=== PATIENT | female | born 1990 | race Caucasian/White ===

== ENCOUNTER 2023-04-11 16:24 | Emergency (ER) | payer OTHER ==
[~2023-04-11] VITALS: Wt 66.5 kg
[~2023-04-11 16:24] MED LIST: KETOROLAC10 MG PO
[2023-04-11 17:09] VITALS: BP 120/78
== END 2023-04-11 17:55 | disposition home or self-care (01) ==
LOC: ED 16:24
DX: O03.9 Complete or unspecified spontaneous abortion without complication (principal)

== ENCOUNTER → 2023-04-13 | Outpatient (CLI) | payer OTHER | LOC: LAB 16:06 | DX: O03.4 Incomplete spontaneous abortion without complication (principal) ==

== ENCOUNTER 2023-08-01 03:40 | Emergency (ER) | payer OTHER ==
[~2023-08-01] VITALS: Ht 157.5 cm; Wt 65.9 kg
[2023-08-01] MEDS ORDERED: Ketorolac 30 MG/ML VIAL IV ONE (04:15)
[2023-08-01 04:18] LABS: BASO # 0.01 K/mm3 (0.02-0.10); EOS # 0.02 K/mm3 (0.04-0.40); EOS % 0.2 % (1.0-5.0); HEMATOCRIT 43.2 % (37.0-47.0); HEMOGLOBIN 14.3 g/dL (12.5-16.0); LYMPH# 1.92 K/mm3 (1.50-4.00); MEAN CELL VOLUME 94 fl (78-100); MEAN CORPUSCULAR HEMOGLOBIN 31 pg (27-31); MEAN CORPUSCULAR HGB CONC 33 g/dL (33-37); MEAN PLATELET VOLUME 8.6 fl (7.4-10.4); MONO # 0.93 K/mm3 (0.20-0.80); NEU # 9.07 K/mm3 (1.40-6.50); PLATELET COUNT 287 K/mm3 (130-400); RED CELL DISTRIBUTION WIDTH 12.7 % (11.5-14.5); WHITE BLOOD COUNT 12.2 K/mm3 (4.8-10.8)
[2023-08-01 04:28] LABS: SODIUM 138 mmol/L (136-145)
[2023-08-01 04:29] LABS: CALCIUM 8.8 mg/dL (8.3-10.5)
[2023-08-01 04:30] LABS: GLUCOSE 101 mg/dL (65-105)
[2023-08-01] MEDS ORDERED: methylPREDNISolone Sod Succ 40 MG/ML VIAL IV ONE (04:30)
[2023-08-01 04:32] LABS: CARBON DIOXIDE 23 mmol/L (22-29)
[2023-08-01] MEDS ORDERED: VYVANSE30 M1 (04:50)
[2023-08-01] MEDS ORDERED: PREDNISONE10 MG (04:51)
[2023-08-01 05:10] VITALS: BP 104/68
== END 2023-08-01 05:00 | disposition home or self-care (01) ==
LOC: ED 03:40
PROVIDERS: Family Medicine
DX: M25.552 Pain in left hip (principal); M25.551 Pain in right hip; M25.562 Pain in left knee; M25.561 Pain in right knee; E27.40 Unspecified adrenocortical insufficiency; Z98.890 Other specified postprocedural states
CPT/HCPCS: J1885; J2920

== ENCOUNTER → 2023-10-11 | Outpatient (CLI) | payer OTHER ==
[~2023-10-11] MED LIST changes: +PREDNISONE10 MG; +VYVANSE30 M1
== END ==
LOC: LAB 13:32
DX: F41.9 Anxiety disorder, unspecified (principal); R53.81 Other malaise